=== PATIENT | male | born 1935 | race Caucasian/White ===

== ENCOUNTER 2017-04-17 10:07 | Emergency (ER) | payer MEDICARE, BC ==
[~2017-04-17] VITALS: Ht 167.6 cm; Wt 114.5 kg
[~2017-04-17 10:07] MED LIST: ASPIRIN E.C. 8181 MG PO; ATACAND 16M16 MG/TAB PO; HCTZ 25MG TAB25 MG PO; HUMALOG100 U/ML SC; LANOXIN 0.25M0.25 MG PO; LEVEMIR100 U/ML SC; LIPITOR 10MG10 MG PO; NORVASC 10MG10 MG PO; PLAVIX 75MG TAB75 MG PO; SYNTHROID0.075 MG/T PO; SYNTHROID0.1 MG/TAB PO; TOPROL XL 25MG25 MG PO; TRICOR145 MG PO; ZESTRIL2.5 MG PO
[2017-04-17 10:17] VITALS: TEMP 98
[2017-04-17] MEDS ORDERED: HYDRODIURIL50 MG PO (10:41)
[2017-04-17 11:09] LABS: BASO % 0.3 % (0.0-2.0); EOS # 0.1 (0.0-0.7); EOS % 1.6 % (0-4.0); GRAN # 6.8 (1.4-6.5); GRAN % 77.4 % (42.2-75.2); HEMATOCRIT 44.2 % (42.0-52.0); HEMOGLOBIN 14.7 g/dl (13.5-18.0); LYMPH # 1.1 (1.2-3.4); LYMPH % 12.3 % (20.0-51.0); MEAN CELL VOLUME 90 fl (80.0-100.0); MEAN CORPUSCULAR HEMOGLOBIN 30 pg (27.0-31.0); MEAN CORPUSCULAR HGB CONC 33 g/dl (33.0-37.0); MEAN PLATELET VOLUME 12.1 fl (7.4-10.4); MONO # 0.7 (0.1-0.6); MONO % 7.9 % (1.7-9.3); PLATELET COUNT 181 K/mm3 (130-400); RED BLOOD COUNT 4.89 M/mm3 (4.20-5.60); REDCELL DISTRIBUTION WIDTH-CV 13.6 % (11.5-14.5); WHITE BLOOD COUNT 8.7 K/mm3 (4.8-10.8)
[2017-04-17 11:21] LABS: C-REACTIVE PROTEIN 0.7 mg/dL (0.0-0.9); CALCIUM 9.1 mg/dL (8.4-10.2); CREATININE, serum 1.99 mg/dL (0.66-1.25); POTASSIUM 3.6 mmol/L (3.4-5.0)
[2017-04-17 11:28] LABS: INR 1.1 (0.8-3.0); PROTHROMBIN TIME 12.6 SECONDS (9.7-12.8)
[2017-04-17 11:31] LABS: PARTIAL THROMBOPLASTIN TIME 34.6 SECONDS (26.0-37.0)
[2017-04-17] MEDS ORDERED: NORCO 325 MG-51 TAB PO (13:11)
[2017-04-17] MEDS ORDERED: BACTRIM DS 8001 TAB PO (13:11)
[2017-04-17] MEDS ORDERED: AMOXICILLIN 8751 TAB PO (13:11)
[2017-04-17 13:21] VITALS: BP 122/45; PULSE 87
== END 2017-04-17 13:22 | disposition home or self-care (01) ==
LOC: COL.ER 10:07
PROVIDERS: Emergency Medicine
DX: L03.116 Cellulitis of left lower limb (principal); L03.115 Cellulitis of right lower limb; Z86.718 Personal history of other venous thrombosis and embolism; Z79.4 Long term (current) use of insulin; Z86.711 Personal history of pulmonary embolism; I10 Essential (primary) hypertension; I25.10 Atherosclerotic heart disease of native coronary artery without angina pectoris; Z95.5 Presence of coronary angioplasty implant and graft; E66.9 Obesity, unspecified; Z68.41 Body mass index [BMI] 40.0-44.9, adult

== ENCOUNTER 2018-04-20 07:45 | Day surgery (SDC) | payer MEDICARE, BC ==
[2018-04-20] VITALS (390 sets, daily range): BP systolic 134–188; BP diastolic 56–92; PULSE 53–79; TEMP 97.1–98.1; O2SAT 89–99
[~2018-04-20] VITALS: Ht 167.6 cm; Wt 113.2 kg
[~2018-04-20 07:45] MED LIST changes: +AMOXICILLIN 8751 TAB PO; +BACTRIM DS 8001 TAB PO; -HUMALOG100 U/ML SC; +HUMALOG100 U/ML SQ; +HYDRODIURIL50 MG PO; -LEVEMIR100 U/ML SC; +LEVEMIR100 U/ML SQ; +NORCO 325 MG-51 TAB PO
[2018-04-20 08:26] LABS: HEMATOCRIT 42.9 % (42.0-52.0); HEMOGLOBIN 14.1 g/dl (13.5-18.0); MEAN CELL VOLUME 89 fl (80.0-100.0); MEAN CORPUSCULAR HEMOGLOBIN 29 pg (27.0-31.0); MEAN CORPUSCULAR HGB CONC 33 g/dl (33.0-37.0); MEAN PLATELET VOLUME 11.6 fl (7.4-10.4); PLATELET COUNT 183 K/mm3 (130-400); RED BLOOD COUNT 4.84 M/mm3 (4.20-5.60); REDCELL DISTRIBUTION WIDTH-CV 14.2 % (11.5-14.5)
[2018-04-20 08:32] LABS: PROTHROMBIN TIME 11.9 SECONDS (9.7-12.8)
[2018-04-20 08:36] LABS: CALCIUM 9.3 mg/dL (8.4-10.2); CREATININE, serum 1.71 mg/dL (0.66-1.25); POTASSIUM 3.9 mmol/L (3.4-5.0)
[2018-04-21] VITALS (330 sets, daily range): BP systolic 135–146; BP diastolic 60–82; PULSE 62–67; TEMP 97.8–98; O2SAT 90–100
[2018-04-21 06:01] LABS: BASO % 0.2 % (0.0-2.0); EOS # 0.1 (0.0-0.7); EOS % 1.3 % (0-4.0); GRAN # 8.8 (1.4-6.5); GRAN % 82.5 % (42.2-75.2); HEMOGLOBIN 13.8 g/dl (13.5-18.0); MEAN CELL VOLUME 90 fl (80.0-100.0); MEAN CORPUSCULAR HEMOGLOBIN 29 pg (27.0-31.0); MEAN CORPUSCULAR HGB CONC 32 g/dl (33.0-37.0); MONO # 0.7 (0.1-0.6); MONO % 6.2 % (1.7-9.3); PLATELET COUNT 185 K/mm3 (130-400); RED BLOOD COUNT 4.76 M/mm3 (4.20-5.60); REDCELL DISTRIBUTION WIDTH-CV 14.4 % (11.5-14.5)
[2018-04-21 06:14] LABS: CALCIUM 9.1 mg/dL (8.4-10.2); CREATININE, serum 1.61 mg/dL (0.66-1.25); POTASSIUM 3.8 mmol/L (3.4-5.0)
[2018-04-21] MEDS ORDERED: PLAVIX 75MG TAB75 MG PO (11:36)
[2018-04-22] MEDS ORDERED: TOPROL XL 25MG25 MG PO (16:01)
[2018-04-22] MEDS ORDERED: LIPITOR 10MG10 MG PO (16:02)
== END 2018-04-21 15:40 | disposition home or self-care (01) ==
LOC: COL.CAR 07:45 → ICU 11:46 → COL.CAR 04-21 15:40
PROVIDERS: Internal Medicine Cardiovascular Disease; Nurse Practitioner
DX: I25.10 Atherosclerotic heart disease of native coronary artery without angina pectoris (principal); I10 Essential (primary) hypertension; I87.8 Other specified disorders of veins; E11.9 Type 2 diabetes mellitus without complications; Z79.4 Long term (current) use of insulin; E03.9 Hypothyroidism, unspecified; E87.5 Hyperkalemia; Z87.891 Personal history of nicotine dependence; Z79.899 Other long term (current) drug therapy; Z79.82 Long term (current) use of aspirin; Z83.3 Family history of diabetes mellitus; Z95.5 Presence of coronary angioplasty implant and graft
CPT/HCPCS: OP; C1769; C1874; C1887; C1894; C9600; J1644; J1815; J2250; J3010; J7030; Q9967

== ENCOUNTER → 2018-04-28 | Outpatient (CLI) | payer MEDICARE, BC ==
[~2018-04-28] MED LIST changes: +ASPI325T6 PO
== END ==
LOC: COL.PUL 10:35
DX: I25.10 Atherosclerotic heart disease of native coronary artery without angina pectoris (principal)

== ENCOUNTER → 2018-05-05 | Outpatient (CLI) | payer MEDICARE, BC | LOC: COL.PUL 10:42 | DX: I25.10 Atherosclerotic heart disease of native coronary artery without angina pectoris (principal) ==

== ENCOUNTER → 2018-05-11 | Outpatient (CLI) | payer MEDICARE, BC | LOC: COL.PUL 09:00 | DX: I25.10 Atherosclerotic heart disease of native coronary artery without angina pectoris (principal); R06.02 Shortness of breath ==

== ENCOUNTER → 2018-05-15 | Outpatient (CLI) | payer MEDICARE, BC | LOC: COL.PUL 12:57 | DX: R06.02 Shortness of breath (principal); R07.9 Chest pain, unspecified; I25.10 Atherosclerotic heart disease of native coronary artery without angina pectoris ==

== ENCOUNTER 2019-07-30 11:29 | Day surgery (SDC) | payer MEDICARE, BC ==
[2019-07-30] VITALS (7 sets, daily range): BP systolic 129–148; BP diastolic 68–84; PULSE 68–79; TEMP 98.2
[~2019-07-30] VITALS: Ht 170.3 cm; Wt 91.0 kg
[~2019-07-30 11:29] MED LIST changes: +ASPIRIN 32325 MG/TAB PO; +ELIQUIS 2.5 PO; +ELIQUIS 5MG PO; +HUMALOG PEN100 U/ML SQ; +LASIX 20MG TABL20 MG PO; +LASIX 40MG TABL40 MG PO; +LOPRESSOR 225 MG/TAB PO; +PACERONE400 MG PO; +ZAROXOLYN 2.52.5 MG PO
[2019-07-30 12:30] LABS: INR 1.4 (0.8-3.0); PROTHROMBIN TIME 16.8 SECONDS (9.7-12.8)
[2019-07-30] MEDS ORDERED: NORVASC 10MG10 MG PO (12:58)
[2019-07-30] MEDS ORDERED: PACERONE400 MG PO (12:58)
[2019-07-30] MEDS ORDERED: ELIQUIS 5MG PO (12:59)
[2019-07-30] MEDS ORDERED: ASPIRIN E.C. 8181 MG PO (13:00)
[2019-07-30] MEDS ORDERED: ATACAND32 MG PO (13:02)
[2019-07-30] MEDS ORDERED: LASIX 40MG TABL40 MG PO (13:03)
[2019-07-30] MEDS ORDERED: LEVEMIR FLEX100 U/ML SQ (13:05)
[2019-07-30] MEDS ORDERED: ADMELOG SO100 UNIT/1 SQ (13:07)
[2019-07-30 13:08] LABS: POTASSIUM 4.1 mmol/L (3.4-5.0)
[2019-07-30] MEDS ORDERED: TOPROL XL 50MG50 MG PO ×2 (13:09→14:46)
[2019-07-30 13:43] LABS: THYROID STIMULATING HORMONE 1.12 uIU/mL (0.465-4.680)
--- NOTE | 2019-07-30 14:45 | NUR ---
Report from Flex MACARIO, CV unsuccessful. Pt resting well in bed, family at bedside.
--- NOTE | 2019-07-30 15:45 | NUR ---
Pt has ambulated, voided and jose PO intake s n/v. PIV removed with catheter intact.
--- NOTE | 2019-07-30 16:00 | NUR ---
Pt discharged per w/c by nurse with family.
== END 2019-07-30 16:38 | disposition home or self-care (01) ==
LOC: COL.CAR 11:29
PROVIDERS: Internal Medicine Cardiovascular Disease
DX: I48.19 Other persistent atrial fibrillation (principal); I25.10 Atherosclerotic heart disease of native coronary artery without angina pectoris; I13.10 Hypertensive heart and chronic kidney disease without heart failure, with stage 1 through stage 4 chronic kidney disease, or unspecified chronic kidney disease; N18.9 Chronic kidney disease, unspecified; E11.9 Type 2 diabetes mellitus without complications; Z79.4 Long term (current) use of insulin; Z83.3 Family history of diabetes mellitus; Z82.49 Family history of ischemic heart disease and other diseases of the circulatory system; Z79.899 Other long term (current) drug therapy; Z79.01 Long term (current) use of anticoagulants; Z95.5 Presence of coronary angioplasty implant and graft; Z86.73 Personal history of transient ischemic attack (TIA), and cerebral infarction without residual deficits; E78.5 Hyperlipidemia, unspecified; E03.9 Hypothyroidism, unspecified; I27.20 Pulmonary hypertension, unspecified; I34.0 Nonrheumatic mitral (valve) insufficiency; Z87.891 Personal history of nicotine dependence
CPT/HCPCS: J2704; J7030

== ENCOUNTER → 2019-12-07 | Outpatient (CLI) | payer MEDICARE, BC ==
[~2019-12-07] MED LIST changes: +ADMELOG SO100 UNIT/1 SQ; +ATACAND32 MG PO; +LEVEMIR FLEX100 U/ML SQ; +TOPROL XL 50MG50 MG PO
== END ==
LOC: ZCOL.LAB 12:36
DX: L97.519 Non-pressure chronic ulcer of other part of right foot with unspecified severity (principal)

== ENCOUNTER → 2020-07-06 | Outpatient (CLI) | payer MEDICARE, BC | LOC: ZCOL.LAB 16:28 | DX: L97.519 Non-pressure chronic ulcer of other part of right foot with unspecified severity (principal) ==

== ENCOUNTER → 2020-09-04 | Outpatient (CLI) | payer MEDICARE, BC | LOC: ZCOL.LAB 13:40 | DX: L97.519 Non-pressure chronic ulcer of other part of right foot with unspecified severity (principal) ==

== ENCOUNTER 2020-09-12 12:13 | Inpatient (IN) | payer MEDICARE, BC ==
[~2020-09-12] VITALS: Ht 172.7 cm; Wt 97.9 kg
[~2020-09-12 12:13] MED LIST changes: -DOXYCYCLINE 10100 MG PO; -FLOMAX 0.40.4 MG/CAP PO; -LASIX 80MG TABL80 MG PO; -LEVOXYL0.088 MG PO; -LIPITOR 80MG80 MG PO; -LOPRESSOR 550 MG/TAB PO; -NORVASC 5MG5 MG/TAB PO; -OXYGEN NASAL.CANN
[2020-09-12 12:59] LABS: BASO % 0.5 % (0.0-2.0); EOS # 0.1 (0.0-0.7); EOS % 0.6 % (0-4.0); GRAN # 7.4 (1.4-6.5); GRAN % 84.9 % (42.2-75.2); HEMATOCRIT 38.9 % (42.0-52.0); HEMOGLOBIN 12.5 g/dl (13.5-18.0); LYMPH # 0.7 (1.2-3.4); LYMPH % 7.9 % (20.0-51.0); MEAN CELL VOLUME 94 fl (80.0-100.0); MEAN CORPUSCULAR HEMOGLOBIN 30 pg (27.0-31.0); MEAN CORPUSCULAR HGB CONC 32 g/dl (33.0-37.0); MONO # 0.5 (0.1-0.6); MONO % 5.6 % (1.7-9.3); PLATELET COUNT 172 K/mm3 (130-400); RED BLOOD COUNT 4.15 M/mm3 (4.20-5.60); REDCELL DISTRIBUTION WIDTH-CV 14.8 % (11.5-14.5)
[2020-09-12 13:10] LABS: ALANINE AMINOTRANSFERASE 12 U/L (4-49); ALKALINE PHOSPHATASE 59 U/L (50-136); ANION GAP 11 mmol/L (7-16); AST,SGOT 26 U/L (15-37); BILIRUBIN,TOTAL 1.1 mg/dL (0.0-1.0); BLOOD UREA NITROGEN 47 mg/dL (9-20); CALCIUM 9.1 mg/dL (8.4-10.2); CARBON DIOXIDE 29 mmol/L (22-30); CHLORIDE 99 mmol/L (98-107); CREATININE, serum 2.19 (0.66-1.25); GLUCOSE 260 mg/dL (74-106); POTASSIUM 3.6 mmol/L (3.4-5.0); SODIUM 138 mmol/L (137-145); TOTAL PROTEIN 7.4 gm/dL (6.4-8.2)
[2020-09-12 13:26] LABS: TROPONIN-I < 0.012 ng/mL (0.000-0.035)
[2020-09-12 13:29] LABS: PARTIAL THROMBOPLASTIN TIME 38.3 SECONDS (26.0-37.0)
[2020-09-12 13:30] LABS: INR 2.3 (0.8-3.0); PROTHROMBIN TIME 25.8 SECONDS (9.7-12.8)
[2020-09-12] MEDS ORDERED: LEVOXYL0.088 MG PO (14:37)
[2020-09-12] MEDS ORDERED: NORVASC 5MG5 MG/TAB PO (14:37)
[2020-09-12] MEDS ORDERED: TOPROL XL 25MG25 MG PO (14:37)
[2020-09-12] MEDS ORDERED: FLOMAX 0.40.4 MG/CAP PO (14:38)
[2020-09-12] MEDS ORDERED: LASIX 80MG TABL80 MG PO (14:38)
[2020-09-12] MEDS ORDERED: DOXYCYCLINE 10100 MG PO (14:40)
[2020-09-12 15:56] VITALS: BP 137/60; PULSE 79; TEMP 98.5
[2020-09-12 16:00] VITALS: BP 137/60; PULSE 79; TEMP 98.5
--- NOTE | 2020-09-12 19:09 | NUR ---
Report given to AMIRAH Sullivan. Pt has had an uneventful day since his arrival. Plan is to hold Eliquis and provide heart cath, and possible Thora with Dr. Ruth. No further concerns.
[2020-09-12 20:29] VITALS: BP 125/60; PULSE 77; TEMP 97.3
--- NOTE | 2020-09-12 21:56 | NUR ---
Pt assessment complete. Pt sitting up in bed upon entry, he is A/O x4. His breathing is currently even and unlabored on 2L O2 via NC. Pt does become very dyspneic with exertion and laying down. No pain reported. Pt denies N/V. POC to be NPO after midnight discussed with patient, verbalizes understanding. Pt agreeable to try SCD's at this time. POC discussed with patient who verbalizes understanding. No needs at this time. Call light within reach.
[2020-09-13 00:05] VITALS: BP 121/62; PULSE 79; TEMP 98.1
[2020-09-13 04:17] VITALS: BP 116/54; PULSE 76; TEMP 98
--- NOTE | 2020-09-13 06:23 | NUR ---
Pt slept well through the night. Pt was made NPO at midnight, per TORY Royal in preparation for thoracentesis or heart cath if needed. Pt denied any pain through the night. Some dyspnea on exertion. Had good UOP. On 3L O2 via NC. SCD's in place. Bandage to sore on plantar side of R foot changed. Call light within reach. Will continue to monitor.
[2020-09-13 07:01] LABS: BASO % 0.4 % (0.0-2.0); EOS # 0.1 (0.0-0.7); EOS % 1.2 % (0-4.0); GRAN # 7.5 (1.4-6.5); GRAN % 82.2 % (42.2-75.2); HEMATOCRIT 39.5 % (42.0-52.0); HEMOGLOBIN 12.8 g/dl (13.5-18.0); INR 1.7 (0.8-3.0); LYMPH # 0.9 (1.2-3.4); LYMPH % 9.7 % (20.0-51.0); MEAN CELL VOLUME 94 fl (80.0-100.0); MEAN CORPUSCULAR HEMOGLOBIN 31 pg (27.0-31.0); MEAN CORPUSCULAR HGB CONC 32 g/dl (33.0-37.0); MEAN PLATELET VOLUME 12.7 fl (7.4-10.4); MONO # 0.6 (0.1-0.6); MONO % 6.3 % (1.7-9.3); PLATELET COUNT 172 K/mm3 (130-400); PROTHROMBIN TIME 18.7 SECONDS (9.7-12.8); REDCELL DISTRIBUTION WIDTH-CV 14.8 % (11.5-14.5)
[2020-09-13 07:08] LABS: CALCIUM 9.1 mg/dL (8.4-10.2); CREATININE, serum 2.07 (0.66-1.25); MAGNESIUM 1.9 mg/dL (1.6-2.3); POTASSIUM 3.4 mmol/L (3.4-5.0)
[2020-09-13 09:20] VITALS: BP 121/55; PULSE 81; TEMP 98.1
[2020-09-13] MEDS ORDERED: LOPRESSOR 550 MG/TAB PO (10:10)
--- NOTE | 2020-09-13 10:56 | NUR ---
Photographic Press Screwmaker met with patient and patient's daughter, Yara (ph#[phone]) to discuss discharge planning. Patient lives alone in [place] and sees Dr. Woodward for primary care. Patient obtains most medications by mail from [employer] and also utilizes [facility] as needed. Patient has home oxygen set up through [employer] and uses a cane for ambulation. Patient also has a walker at home but does not use it. Patient reports independence with ADLS and states he does his own cooking at home. Patient states if he is not feeling well, his daughters help him around the home. Patient's daughter Yara lives in and his other daughter, Nivia (ph#[phone]) lives in [place], [place]. Patient has a third child, Tello that lives in [place]. Patient reports he has Advance Directives completed at [facility] and that they designate his daughter, Yara as DPOA-HC. Patient advised he plans to return home upon discharge. SW will continue to follow as needed.
--- NOTE | 2020-09-13 11:00 | NUR ---
Patient is doing well this morning. He stated the lasix is helping him breath better. His family is at bedside. Explained they are going to check for fluid in his lung before doing the thoracentesis. Denies nausea and pain at this time. He has his O2 on at 3L/NC. Patient stated he has been having a hard time getting around, his legs feel heavy. Explained that maybe he will feel better after getting more fluids off. No other changes at this time. Call light within reach.
--- NOTE | 2020-09-13 11:06 | NUR ---
First visit from the resident assistant. No needs right now.
[2020-09-13 12:06] VITALS: BP 109/58; PULSE 85; TEMP 98.2
[2020-09-13 14:33] LABS: PLEURAL FLUID RBC 3000 /mm3 (0-0); PLEURAL FLUID WBC 806 /mm3
[2020-09-13 14:44] LABS: GLUCOSE,PLEURAL FLUID 167 mg/dL; PLEURAL FLUID APPEARANCE CLEAR; PLEURAL FLUID COLOR YELLOW; TOTAL PROTEIN,PLEURAL FLUID 4.3 gm/dL
[2020-09-13 15:20] VITALS: BP 138/72; PULSE 89; TEMP 98.1
--- NOTE | 2020-09-13 18:00 | NUR ---
Patient has been doing well since getting back from his procedure. He is aware he will be having a heart cath on friday. He stated his breathing is better since getting the fluid off. His IV infiltrated and it took 4 sticks to get a 22g in his right hand. His lasix has been switched to oral. No other changes at this time. Call light within reach.
[2020-09-13 19:09] VITALS: BP 143/58; PULSE 105; TEMP 98
[2020-09-14 00:51] VITALS: BP 127/57; PULSE 89; TEMP 97.7
[2020-09-14 04:08] VITALS: BP 147/59; PULSE 79; TEMP 97.4
[2020-09-14 07:56] VITALS: BP 130/59; PULSE 106; TEMP 98.1
[2020-09-14 08:39] LABS: HEMATOCRIT 41.5 % (42.0-52.0); HEMOGLOBIN 13.5 g/dl (13.5-18.0); MEAN CELL VOLUME 95 fl (80.0-100.0); MEAN CORPUSCULAR HEMOGLOBIN 31 pg (27.0-31.0); MEAN CORPUSCULAR HGB CONC 33 g/dl (33.0-37.0); MEAN PLATELET VOLUME 12.3 fl (7.4-10.4); PLATELET COUNT 157 K/mm3 (130-400); RED BLOOD COUNT 4.38 M/mm3 (4.20-5.60)
[2020-09-14 08:53] LABS: CREATININE, serum 2.33 (0.66-1.25); POTASSIUM 3.5 mmol/L (3.4-5.0)
--- NOTE | 2020-09-14 10:00 | NUR ---
Assessment completed, alert/oriented, vital signs stable, patient reports feeling better from having Thoracentesis yesterday, lungs still diminished bilaterally, orders for chets CT today, heart irregular/ A.fib on tele, DM foot ulcer to right plantar aspect of foot/ dressing changed with Aquacell Ag and tegaderm, patient reports he has wound care with home health, nephrology consulted/ I have notified them, patient denies other needs at this time
--- NOTE | 2020-09-14 11:07 | NUR ---
Hair Blender attended clinical rounds with the team. Patient to have heart cath tomorrow and SW will continue to follow.
[2020-09-14 11:48] VITALS: BP 149/54; PULSE 67; TEMP 98.3
--- NOTE | 2020-09-14 12:40 | NUR ---
patient is going down for CT chest at this time
[2020-09-14 16:53] VITALS: BP 101/65; PULSE 77; TEMP 98.1
--- NOTE | 2020-09-14 21:10 | NUR ---
Pt assessment completed and documented. Pt resting in bed sleeping when entering room. Pt alert and oriented x4. Denies pain. INT to right hand CDI. Pt verbalized understanding that he is to be NPO at midnight for heart cath 09/15. Tele on. Pt denies any other needs/concerns. Call light within reach. Will continue to monitor
[2020-09-14 21:44] VITALS: BP 108/58; PULSE 58; TEMP 97.7
[2020-09-15] VITALS (15 sets, daily range): BP systolic 95–121; BP diastolic 48–92; PULSE 63–118; TEMP 97.4–98.6
[2020-09-15 00:10] LABS: COLLECTION METHOD CLEAN CATCH
[2020-09-15 00:20] LABS: MUCOUS Present /lpf; PH 5 (5-8); SQUAMOUS EPITHELIAL 0-2 /hpf; URINE APPEARANCE Clear; URINE BACTERIA None Seen /hpf; URINE BILIRUBIN Negative (NEGATIVE); URINE BLOOD Negative (NEGATIVE); URINE COLOR Yellow; URINE GLUCOSE Negative (NEGATIVE); URINE KETONE Negative (NEGATIVE); URINE LEUKOCYTE ESTERASE Negative (NEGATIVE); URINE NITRATE Negative (NEGATIVE); URINE PROTEIN(semi-quant) 1+ (NEGATIVE); URINE RBC 0-2 /hpf; URINE UROBILINOGEN Negative (NEGATIVE); URINE WBC 0-2 /hpf
[2020-09-15 00:27] LABS: URINE PROTEIN:CREAT RATIO 0.58 (0.00-0.14)
--- NOTE | 2020-09-15 05:10 | NUR ---
Pt reports he was not able to get much sleep overnight. No complaints of pain. Currently resting in bed. NPO since midnight. Tele on. Denies any needs/concerns. Call light within reach
[2020-09-15 07:01] LABS: HEMATOCRIT 39.9 % (42.0-52.0); HEMOGLOBIN 12.8 g/dl (13.5-18.0); MEAN CELL VOLUME 95 fl (80.0-100.0); MEAN CORPUSCULAR HEMOGLOBIN 31 pg (27.0-31.0); MEAN CORPUSCULAR HGB CONC 32 g/dl (33.0-37.0); PLATELET COUNT 156 K/mm3 (130-400); REDCELL DISTRIBUTION WIDTH-CV 15.1 % (11.5-14.5)
[2020-09-15 07:02] LABS: CALCIUM 8.9 mg/dL (8.4-10.2); CREATININE, serum 2.14 (0.66-1.25); POTASSIUM 3.2 mmol/L (3.4-5.0)
--- NOTE | 2020-09-15 08:00 | NUR ---
PT PLEASANT, AOX4, PT DENIES PAIN AT THIS TIME, PT NPO FOR PROCEDURE, HAD SIP OF WATER WITH PILLS, VITALS REVIEWED, MEDICATIONS GIVEN. CONSENT SIGNED ON CHART. NO OTHER NEEDS.
--- NOTE | 2020-09-15 12:30 | NUR ---
PT TAKEN DOWN FOR HEART CATH.
--- NOTE | 2020-09-15 14:05 | NUR ---
PT STATES HE FELT DIZZY, EXPLAINED HIGH HR COULD BE CAUSE. PT HAVING BORDERLINE LOW BP'S, EXPLAINED AMOUNT OF TIME HE HAS TO LAY DOWN, NO OTHER NEEDS.
--- NOTE | 2020-09-15 15:09 | NUR ---
PT REPORTING NAUSEA, DENIES NEED FOR MEDICAL INTERVENTION, PT STILL FEELS DIZZY, BS NORMAL, PT ATTEMPTING TO DRINK POTASSIUM IN APPLE JUICE.
--- NOTE | 2020-09-15 16:24 | NUR ---
PT STOOD WITH ASSISTANCE TO USE URINAL, 15OML OUTPUT. RECIEVED CALL FROM TELEMETRY ABOUT HR IN 150'S. PT SETTLED BACK INTO BED, HR STILL OVER 100. TORY HERRERA NOTIFIED. TR BAND RELEASED 5ML, CURRENTLY AT 11ML. NO OOZING OR DRAINAGE FROM SITE, R FEMORAL SITE SOFT TO PALPATION, NO BLEEDING THROUGH DRESSING.
--- NOTE | 2020-09-15 16:55 | NUR ---
some oozing at radial site, band inflated to 15mls of air. toprol given per TORY Shin and Dr. Aguirre.
--- NOTE | 2020-09-15 17:34 | NUR ---
pt pleasant overall, was initially upset i had to help him up after heartcath to use the urinal. pt aox4, low pressures, inc hr, hosp and georgina aware. heart cath with no intervention. r radial attempted to let out air but oozing so inflated again. r femoral site soft to palpation with no bleeding at dressing site. toprol given. pt initially dizzy after procedure but denies at this time. no other needs.
[2020-09-16] VITALS (7 sets, daily range): BP systolic 100–125; BP diastolic 46–80; PULSE 75–96; TEMP 97.4–98.5
--- NOTE | 2020-09-16 03:27 | NUR ---
Patient was having difficulty sleeping. Called provider, and was given an order for melatonin. Patient is currenlty resting comfortably. Call light within reach.
[2020-09-16 05:55] LABS: BASO # 0.1 (0.0-0.2); BASO % 0.7 % (0.0-2.0); EOS # 0.2 (0.0-0.7); EOS % 2.2 % (0-4.0); GRAN # 5.5 (1.4-6.5); GRAN % 75.6 % (42.2-75.2); HEMATOCRIT 37.9 % (42.0-52.0); LYMPH # 0.9 (1.2-3.4); LYMPH % 12.8 % (20.0-51.0); MEAN CELL VOLUME 94 fl (80.0-100.0); MEAN CORPUSCULAR HEMOGLOBIN 30 pg (27.0-31.0); MEAN CORPUSCULAR HGB CONC 32 g/dl (33.0-37.0); MEAN PLATELET VOLUME 12.5 fl (7.4-10.4); MONO # 0.6 (0.1-0.6); MONO % 8.4 % (1.7-9.3); PLATELET COUNT 137 K/mm3 (130-400); RED BLOOD COUNT 4.03 M/mm3 (4.20-5.60); REDCELL DISTRIBUTION WIDTH-CV 15.1 % (11.5-14.5)
[2020-09-16 06:06] LABS: CALCIUM 8.6 mg/dL (8.4-10.2); CREATININE, serum 1.97 (0.66-1.25); MAGNESIUM 1.9 mg/dL (1.6-2.3); POTASSIUM 3.7 mmol/L (3.4-5.0)
--- NOTE | 2020-09-16 06:50 | NUR ---
bedside shift report received from Xiomara student nurse and Tran, RN
--- NOTE | 2020-09-16 09:00 | NUR ---
resting in bed after having had breakfast and tolerated it well, denies pain but c/o soreness in his chest, informed him he needs to let this nurse know if soreness in his chest changes or becomes worse, he states it just happened he got up and went to bathroom, encouraged to rest
--- NOTE | 2020-09-16 09:50 | NUR ---
assisted up to bathroom with use of cane, was able to have a bowel movement and am hygiene completed, does not c/o soreness at this time
--- NOTE | 2020-09-16 11:30 | NUR ---
in bed and appears to be sleeping, eyes closed, resp quiet and easy
--- NOTE | 2020-09-16 13:10 | NUR ---
bedside report given to James Chaidez
--- NOTE | 2020-09-16 20:27 | NUR ---
PT A/O X4, IN BED WITH HOB ELEVATED, DENIES PAIN OR DISCOMFORT, OR ANY NEEDS AT THIS TIME. CALL LIGHT WITHIN REACH.
[2020-09-17 04:20] VITALS: BP 120/54; PULSE 81; TEMP 97.8
[2020-09-17 06:37] LABS: BASO % 0.4 % (0.0-2.0); EOS # 0.2 (0.0-0.7); EOS % 1.9 % (0-4.0); GRAN # 6.6 (1.4-6.5); HEMATOCRIT 38.9 % (42.0-52.0); HEMOGLOBIN 12.2 g/dl (13.5-18.0); LYMPH % 11.4 % (20.0-51.0); MEAN CELL VOLUME 97 fl (80.0-100.0); MEAN CORPUSCULAR HEMOGLOBIN 30 pg (27.0-31.0); MEAN CORPUSCULAR HGB CONC 31 g/dl (33.0-37.0); MEAN PLATELET VOLUME 12.4 fl (7.4-10.4); MONO # 0.6 (0.1-0.6); MONO % 6.9 % (1.7-9.3); PLATELET COUNT 127 K/mm3 (130-400); RED BLOOD COUNT 4.02 M/mm3 (4.20-5.60); REDCELL DISTRIBUTION WIDTH-CV 15.4 % (11.5-14.5)
--- NOTE | 2020-09-17 06:55 | NUR ---
PT SLEPT WELL WITH NO ISSUES OR CONCERNS NOTED. PT READY TO GO HOME, ANXIOUS TO SEE DOCTOR, SO HE CAN LEAVE. CALL LIGHT WITHIN REACH.
[2020-09-17 06:58] LABS: CALCIUM 9.1 mg/dL (8.4-10.2); CREATININE, serum 2.05 (0.66-1.25); POTASSIUM 4.2 mmol/L (3.4-5.0)
--- NOTE | 2020-09-17 07:01 | NUR ---
bedside shift report received from AMIRAH Yang
[2020-09-17 07:30] VITALS: BP 119/58; PULSE 83; TEMP 98.1
[2020-09-17] MEDS ORDERED: LIPITOR 80MG80 MG PO (07:50)
[2020-09-17] MEDS ORDERED: TOPROL XL 25MG25 MG PO (07:50)
[2020-09-17] MEDS ORDERED: ASPIRIN E.C. 8181 MG PO (07:50)
--- NOTE | 2020-09-17 08:13 | NUR ---
PT AT REST IN BED. ON 2 LPM SPO2 97% AT REST ON RA SPO2 87% O2 BACK ON AT 2 LPM NC PT. USES O2 @ HOME @ 2 LPM NC
--- NOTE | 2020-09-17 08:40 | NUR ---
remains sitting up on side of bed after having had breakfas,t cardiopulmonary check room air O2 and it was 87% so O2 back on at 2L/NC, full assessment completed, see interventions for further info, denies needs at this time, will lay back in bed now
--- NOTE | 2020-09-17 09:44 | NUR ---
resting in bed with eyes closed
[2020-09-17] MEDS ORDERED: LASIX 20MG TABL20 MG PO ×2 (10:09→10:18)
[2020-09-17] MEDS ORDERED: OXYGEN NASAL.CANN (10:17)
--- NOTE | 2020-09-17 11:25 | NUR ---
discharged per WC, assisted into car with his daughter, also reviewed discharge orders and medication changes with his daughter and she also verbalizes understanding
== END 2020-09-17 11:25 | disposition home or self-care (01) | DRG 286 ==
LOC: COL.ER 12:13 → MEDICAL 13:44
PROVIDERS: Family Medicine; Internal Medicine Nephrology; Physician Assistant; Student in an Organized Health Care Education/Training Program; ADMIT Hospitalist
PROC: 0W993ZZ Drainage of Right Pleural Cavity, Percutaneous Approach (ICD-10-PCS; 2020-09-13)
PROC: 4A023N6 Measurement of Cardiac Sampling and Pressure, Right Heart, Percutaneous Approach (ICD-10-PCS; principal; 2020-09-15)
PROC: B2111ZZ Fluoroscopy of Multiple Coronary Arteries using Low Osmolar Contrast (ICD-10-PCS; 2020-09-15)
DX: I13.0 Hypertensive heart and chronic kidney disease with heart failure and stage 1 through stage 4 chronic kidney disease, or unspecified chronic kidney disease (principal); I50.33 Acute on chronic diastolic (congestive) heart failure; J96.01 Acute respiratory failure with hypoxia; J98.11 Atelectasis; I25.10 Atherosclerotic heart disease of native coronary artery without angina pectoris; I48.91 Unspecified atrial fibrillation; N18.30 Chronic kidney disease, stage 3 unspecified; E03.9 Hypothyroidism, unspecified; E78.5 Hyperlipidemia, unspecified; J44.9 Chronic obstructive pulmonary disease, unspecified; N40.0 Benign prostatic hyperplasia without lower urinary tract symptoms; Z66 Do not resuscitate; I16.0 Hypertensive urgency; D64.9 Anemia, unspecified; E11.22 Type 2 diabetes mellitus with diabetic chronic kidney disease; S91.301A Unspecified open wound, right foot, initial encounter; I27.20 Pulmonary hypertension, unspecified; I42.9 Cardiomyopathy, unspecified; E87.6 Hypokalemia; D63.1 Anemia in chronic kidney disease; E66.9 Obesity, unspecified; Z86.73 Personal history of transient ischemic attack (TIA), and cerebral infarction without residual deficits; Z95.5 Presence of coronary angioplasty implant and graft; Z79.01 Long term (current) use of anticoagulants; Z87.891 Personal history of nicotine dependence; Z79.4 Long term (current) use of insulin; Z68.32 Body mass index [BMI] 32.0-32.9, adult
CPT/HCPCS: 99223-AI; 99232-AI; 99233-AI; 99239; J1644; J1650; J1815; J1940; J3010; Q9967

== ENCOUNTER → 2020-09-12 | Outpatient (CLI) | payer MEDICARE, BC ==
[~2020-09-12] MED LIST changes: +DOXYCYCLINE 10100 MG PO; +FLOMAX 0.40.4 MG/CAP PO; +LASIX 80MG TABL80 MG PO; +LEVOXYL0.088 MG PO; +LIPITOR 80MG80 MG PO; +LOPRESSOR 550 MG/TAB PO; +NORVASC 5MG5 MG/TAB PO; +OXYGEN NASAL.CANN
== END ==
LOC: COL.CAR 08:00 → COL.LAB 08:00 → EDSTATUS 09-18 08:00 → COL.CAR 09-18 08:00
DX: Z20.828 Contact with and (suspected) exposure to other viral communicable diseases (principal)

== ENCOUNTER 2022-05-17 08:20 | Day surgery (SDC) | payer MEDICARE, BC ==
[2022-05-17] VITALS (497 sets, daily range): BP systolic 113–135; BP diastolic 54–77; PULSE 70–87; TEMP 97.8–98.4; O2SAT 79–99
[~2022-05-17] VITALS: Ht 172.7 cm; Wt 92.1 kg
[~2022-05-17 08:20] MED LIST changes: +DOXYCYCLINE 10100 MG PO; +FLOMAX 0.40.4 MG/CAP PO; +LASIX 80MG TABL80 MG PO; +LEVOXYL0.088 MG PO; +LIPITOR 80MG80 MG PO; +LOPRESSOR 550 MG/TAB PO; +NORVASC 5MG5 MG/TAB PO; +OXYGEN NASAL.CANN
[2022-05-17 09:36] LABS: HEMOGLOBIN 11.5 g/dl (13.5-18.0); MEAN CELL VOLUME 94 fl (80.0-100.0); MEAN CORPUSCULAR HEMOGLOBIN 31 pg (27-31); MEAN CORPUSCULAR HGB CONC 33 g/dl (33.0-37.0); MEAN PLATELET VOLUME 12.1 fl (7.4-10.4); PLATELET COUNT 131 K/mm3 (130-400); RED BLOOD COUNT 3.75 M/mm3 (4.20-5.60); REDCELL DISTRIBUTION WIDTH-CV 17.4 % (11.5-14.5)
[2022-05-17 09:37] LABS: HEMATOCRIT 35.1 % (42.0-52.0)
[2022-05-17 09:43] LABS: INR 1.3 (0.8-3.0); PROTHROMBIN TIME 15.4 SECONDS (9.7-12.8)
[2022-05-17 09:45] LABS: PARTIAL THROMBOPLASTIN TIME 33.5 SECONDS (26.0-37.0)
[2022-05-17 09:52] LABS: CALCIUM 8.8 mg/dL (8.4-10.2); CREATININE, serum 2.76 mg/dL (0.72-1.25); POTASSIUM 3.4 mmol/L (3.5-4.5)
[2022-05-17] MEDS ORDERED: TOPROL XL 25MG25 MG PO (10:26)
[2022-05-17] MEDS ORDERED: LASIX 40MG TABL40 MG PO (10:28)
[2022-05-17] MEDS ORDERED: TRICOR145 MG PO (10:29)
[2022-05-17] MEDS ORDERED: ASPIRIN E.C. 8181 MG PO (10:33)
[2022-05-17] MEDS ORDERED: NORVASC 5MG5 MG/TAB PO (10:34)
[2022-05-17] MEDS ORDERED: NEURONTIN300 MG/CAP PO (10:37)
[2022-05-17] MEDS ORDERED: HUMALOG100 U/ML SQ (10:40)
--- NOTE | 2022-05-17 12:20 | NUR ---
Received report from shrimp pond laborer that pt would be transferring to ICU room 6 after procedure.
--- NOTE | 2022-05-17 13:40 | NUR ---
Arrived to the unit from the catheterization laboratory technician. Patient alert and oriented and in no distress upon arrival. Denies any chest pain or shortness of breath. Reminded patient of limb restrictions while on flat time and patient states he understands. Right groin site and right radial site assessed. +2 pulses palpated and no hematoma noted to either site. TR band with 12ml of air.
--- NOTE | 2022-05-17 16:02 | NUR ---
RE:REFERRAL TO CARDIAC REHAB - REFERRAL WILL BE SENT TO [facility].
--- NOTE | 2022-05-17 18:35 | NUR ---
Denies any concerns or complaints. Ate 75% of his dinner. Call light left within reach.
[2022-05-18] VITALS (616 sets, daily range): BP systolic 111–154; BP diastolic 51–71; PULSE 79–95; TEMP 98.7–99.1; O2SAT 81–99
[2022-05-18 06:32] LABS: ARTERIAL BLD GAS O2 SATURATION 91.9 % (92-100); ARTERIAL BLOOD GAS BASE EXCESS 4.9 (-2-2); ARTERIAL BLOOD GAS HCO3 28.8 meq/L (22-26); ARTERIAL BLOOD GAS PCO2 39.7 mmHg (35-45); ARTERIAL BLOOD GAS pH 7.48 (7.35-7.45)
[2022-05-18 07:14] LABS: HEMOGLOBIN 11.2 g/dl (13.5-18.0); MEAN CELL VOLUME 94 fl (80.0-100.0); MEAN CORPUSCULAR HEMOGLOBIN 32 pg (27-31); MEAN CORPUSCULAR HGB CONC 34 g/dl (33.0-37.0); MEAN PLATELET VOLUME 12.7 fl (7.4-10.4); PLATELET COUNT 146 K/mm3 (130-400); RED BLOOD COUNT 3.56 M/mm3 (4.20-5.60); REDCELL DISTRIBUTION WIDTH-CV 17.3 % (11.5-14.5)
[2022-05-18 07:15] LABS: HEMATOCRIT 33.3 % (42.0-52.0)
[2022-05-18 07:32] LABS: CALCIUM 8.6 mg/dL (8.4-10.2); CREATININE, serum 2.24 mg/dL (0.72-1.25); POTASSIUM 3.5 mmol/L (3.5-4.5)
[2022-05-18 07:50] LABS: BAND 9 % (0-10); EOSINOPHIL 3 % (0-4); LYMPHOCYTE 6 % (20.0-51.0); METAMYELOCYTE 2 % (0-0); NEUTROPHILS 76 % (42.0-75.2); PLATELET ESTIMATE NORMAL (NORMAL)
--- NOTE | 2022-05-18 09:35 | NUR ---
tin recovery worker met with patient to complete intake and discuss discharge plan. Patient reports that he lives at home in [place] and that at this time his son and daughter in law are living with him. He goes on to say that his daughter from [place] is coming in two weeks to stay with him. Patient states that the children have been rotating taking care of him since his 5 years ago. He is independent with his ADL's and does utilize a cane to assist with mobility. Patient states that he utilizes 3Lof NC oxygen at home but cannot remember where it is supplied through. PCP is and he utilizes [facility] pharmacy for prescriptions with no cost difficulty. Patient states that he does have a DPOA-HC established listing his daughter Yara ([phone]) as his agent.
--- NOTE | 2022-05-18 10:37 | NUR ---
Initial visit; Patient resting, Oxyhydrogen Welder left card offering God's blessings and information regarding the availability of Spiritual Care at our hospital.
--- NOTE | 2022-05-18 11:49 | NUR ---
PT LEFT FOR CT ON ICU BED WITH 2 TECHS.
--- NOTE | 2022-05-18 12:00 | NUR ---
PT RETURNED BACK TO HIS ROOM.
[2022-05-18] MEDS ORDERED: LIPITOR 80MG80 MG PO (15:03)
[2022-05-18] MEDS ORDERED: PLAVIX 75MG TAB75 MG PO (15:13)
--- NOTE | 2022-05-18 16:07 | NUR ---
PT LEFT UNIT VIA WHEELCHAIR WITH FAMILY. VSS.
== END 2022-05-18 16:30 | disposition home or self-care (01) ==
LOC: COL.CAR 08:20 → ICU 13:30 → COL.CAR 05-18 16:30
PROVIDERS: Internal Medicine Cardiovascular Disease; Student in an Organized Health Care Education/Training Program
DX: I25.10 Atherosclerotic heart disease of native coronary artery without angina pectoris (principal); I27.20 Pulmonary hypertension, unspecified; Z87.891 Personal history of nicotine dependence
CPT/HCPCS: OP; C1725; C1769; C1874; C1887; C1894; C9600; J0583; J1644; J1815; J2060; J2250; J2270; J3010; J3480; Q9967

== ENCOUNTER 2023-01-29 09:52 | Emergency (ER) | payer MEDICARE, BC ==
[~2023-01-29] VITALS: Ht 172.7 cm; Wt 81.8 kg
[~2023-01-29 09:52] MED LIST changes: +NEURONTIN300 MG/CAP PO
[2023-01-29 10:23] LABS: BASO % 0.4 % (0.0-2.0); EOS # 0.1 K/mm3 (0.0-0.7); EOS % 1.3 % (0.0-4.0); GRAN # 5.5 K/mm3 (1.4-6.5); GRAN % 78.4 % (42.2-75.2); HEMATOCRIT 39.3 % (42.0-52.0); LYMPH # 0.8 K/mm3 (1.2-3.4); LYMPH % 10.7 % (20.0-51.0); MEAN CELL VOLUME 101 fl (80.0-100.0); MEAN CORPUSCULAR HEMOGLOBIN 33 pg (27-31); MEAN CORPUSCULAR HGB CONC 33 g/dl (33.0-37.0); MEAN PLATELET VOLUME 12.7 fl (7.4-10.4); MONO # 0.6 K/mm3 (0.1-0.6); MONO % 8.6 % (1.7-9.3); PLATELET COUNT 157 K/mm3 (130-400); RED BLOOD COUNT 3.89 M/mm3 (4.20-5.60); REDCELL DISTRIBUTION WIDTH-CV 14.6 % (11.5-14.5)
[2023-01-29 10:34] LABS: ALBUMIN 2.9 gm/dL (3.4-4.8); BILIRUBIN,TOTAL 0.6 mg/dL (0.2-1.2); CALCIUM 8.6 mg/dL (8.4-10.2); CREATININE, serum 2.19 mg/dL (0.72-1.25); POTASSIUM 4.7 mmol/L (3.5-4.5); TOTAL PROTEIN 6.6 gm/dL (6.2-8.1)
[2023-01-29 10:40] LABS: TROPONIN-I 0.02 ng/mL (0.00-0.033)
[2023-01-29] MEDS ORDERED: DOXYCYCLINE HY100 MG PO (10:40)
[2023-01-29] MEDS ORDERED: K-TAB20 PO (10:41)
[2023-01-29 10:46] LABS: INR 1.5 (0.8-3.0)
[2023-01-29] MEDS ORDERED: MAG-OX 400400 MG/TAB PO (11:19)
[2023-01-29] MEDS ORDERED: VITAMIN D 50,1.25 MG PO (11:21)
[2023-01-29] MEDS ORDERED: FOLIC ACID 11 MG/TA1 PO (11:21)
[2023-01-29] MEDS ORDERED: OXYGEN (11:22)
[2023-01-29 16:05] VITALS: BP 151/83; PULSE 87; TEMP 98.1
== END 2023-01-29 16:05 | disposition home or self-care (01) ==
LOC: COL.ER 09:52
PROVIDERS: Family Medicine
DX: J90 Pleural effusion, not elsewhere classified (principal); I48.91 Unspecified atrial fibrillation; Z99.81 Dependence on supplemental oxygen; Z79.01 Long term (current) use of anticoagulants; Z20.822 Contact with and (suspected) exposure to COVID-19

== ENCOUNTER 2023-07-03 08:56 | Inpatient (IN) | payer MEDICARE, BC ==
[2023-07-03] VITALS (8 sets, daily range): BP systolic 115–137; BP diastolic 57–77; PULSE 79–114; TEMP 97.5–98.3
[~2023-07-03] VITALS: Ht 170.2 cm; Wt 80.8 kg
[~2023-07-03 08:56] MED LIST changes: +DOXYCYCLINE HY100 MG PO; +FOLIC ACID 11 MG/TA1 PO; +JARDIANCE10; +K-TAB20 PO; +MAG-OX 400400 MG/TAB PO; +NEURONTIN100 MG/CAP PO; -NEURONTIN300 MG/CAP PO; +NOVOLOG 100U100 U/M1 SQ; +OXYGEN; +SYNTHROID0.175 MG PO; +VITAMIN D 50,1.25 MG PO
[2023-07-03] MEDS ORDERED: LASIX 20MG TABL20 MG PO (09:40)
[2023-07-03 12:10] LABS: BASO % 0.4 % (0.0-2.0); EOS # 0.1 K/mm3 (0.0-0.7); EOS % 0.7 % (0.0-4.0); GRAN % 82.9 % (42.2-75.2); HEMATOCRIT 42.9 % (42.0-52.0); HEMOGLOBIN 13.8 g/dl (13.5-18.0); LYMPH # 0.6 K/mm3 (1.2-3.4); LYMPH % 8.9 % (20.0-51.0); MEAN CELL VOLUME 98 fl (80.0-100.0); MEAN CORPUSCULAR HEMOGLOBIN 31 pg (27-31); MEAN CORPUSCULAR HGB CONC 32 g/dl (33.0-37.0); MEAN PLATELET VOLUME 11.1 fl (7.4-10.4); MONO # 0.5 K/mm3 (0.1-0.6); MONO % 6.8 % (1.7-9.3); PLATELET COUNT 142 K/mm3 (130-400)
[2023-07-03 12:30] LABS: ALBUMIN 3.1 gm/dL (3.4-4.8); ALBUMIN 3.2 gm/dL (3.4-4.8); BILIRUBIN,TOTAL 0.9 mg/dL (0.2-1.2); CALCIUM 8.9 mg/dL (8.4-10.2); CREATININE, serum 2.07 mg/dL (0.72-1.25); PHOSPHOROUS 3.9 mg/dL (2.3-4.7); POTASSIUM 4.4 mmol/L (3.5-4.5); POTASSIUM 4.5 mmol/L (3.5-4.5)
[2023-07-03 19:18] LABS: SQUAMOUS EPITHELIAL 0-2 /hpf (0-10); URINE BACTERIA None Seen /hpf (NONE SEEN); URINE RBC 0-2 /hpf (0-2)
[2023-07-03 19:19] LABS: URINE APPEARANCE Clear (CLEAR/HAZY); URINE BLOOD TRACE-INTACT (NEGATIVE); URINE COLOR Straw (YELLOW); URINE GLUCOSE 2+ (NEGATIVE); URINE KETONE Negative (NEGATIVE); URINE NITRATE Negative (NEGATIVE); URINE PROTEIN(semi-quant) 1+ (NEGATIVE); URINE UROBILINOGEN 0.2 E.U/dL (0.2-1.0)
[2023-07-03 19:22] LABS: COLLECTION METHOD CLEAN CATCH
--- NOTE | 2023-07-03 19:34 | NUR ---
Pt arrived to room 307 at approximately 0910 with dx of fluid overload. A/O x4. Pt SpO2 adequate on RA but O2 3L/NC placed for comfort. Pt very SOA with any type of exertion. Fall risk- fall precautions in place. IV site placed to RFA by NEHAL after failed attempt x1 by this nurse. Bumex infusing at 5ml/hr without complications. Ulcer to planter surface of right foot noted. Pt reports this ulcer is chronic and was seeing wound care but no longer does. Some open blisters noted to bilateral shins.
--- NOTE | 2023-07-03 20:30 | NUR ---
SHIFT ASSESSMENT COMPLETE. VSS. A&O X4. PATIENT RESTING IN BED WATCHING TV. ALL NIGHT MEDS GIVEN PER ORDER. PATIENT HAS NO COMPLAINTS AT THIS TIME. BED AT LOWEST POSITION, BED ALARM ON, AND CALL LIGHT IN REACH.
[2023-07-04] VITALS (11 sets, daily range): BP systolic 119–150; BP diastolic 60–80; PULSE 52–91; TEMP 97.5–98.1
[2023-07-04 06:34] LABS: BASO # 0.1 K/mm3 (0.0-0.2); BASO % 1.1 % (0.0-2.0); EOS # 0.1 K/mm3 (0.0-0.7); EOS % 1.9 % (0.0-4.0); GRAN # 4.1 K/mm3 (1.4-6.5); GRAN % 71.9 % (42.2-75.2); HEMATOCRIT 45.1 % (42.0-52.0); HEMOGLOBIN 14.6 g/dl (13.5-18.0); LYMPH # 0.9 K/mm3 (1.2-3.4); LYMPH % 14.9 % (20.0-51.0); MEAN CELL VOLUME 96 fl (80.0-100.0); MEAN CORPUSCULAR HEMOGLOBIN 31 pg (27-31); MEAN CORPUSCULAR HGB CONC 32 g/dl (33.0-37.0); MONO # 0.6 K/mm3 (0.1-0.6); MONO % 9.8 % (1.7-9.3); PLATELET COUNT 148 K/mm3 (130-400); RED BLOOD COUNT 4.69 M/mm3 (4.20-5.60); REDCELL DISTRIBUTION WIDTH-CV 16.2 % (11.5-14.5)
[2023-07-04 06:56] LABS: ALBUMIN 3.1 gm/dL (3.4-4.8); CALCIUM 9.3 mg/dL (8.4-10.2); CREATININE, serum 2.45 mg/dL (0.72-1.25); PHOSPHOROUS 5.2 mg/dL (2.3-4.7)
--- NOTE | 2023-07-04 08:00 | NUR ---
Patient sitting up in bed, A&Ox3. VSS 3L NC O2. IV CDI, fluids infusing. Reports pain in legs/all over body. Will notify the doctor. Call light within reach. Bed alarm on
--- NOTE | 2023-07-04 15:07 | NUR ---
Financial Services Professional met with Patient at bedside to conduct Care Managment assessment and discuss discharge planning. Patient lives with his daughter/DPOAHC in [place], [place] and is established with Dr. Woodward for PCP. Patient is covered by [facility] [place] for insurance. Patient requests discharge medications be sent to [facility] in [place]. Patient endorses NOC O2 and PRN during the day prior to admission. Patient states that he utilizes a cane, walker, and motorized wheelchair in the home and community. Patient states that he is independent with IADLs prior to admission. Discharge Plan: Home pending medical and PT recommendations.
--- NOTE | 2023-07-04 19:11 | NUR ---
Bedside report received from AMIRAH Chow. Pt is currently resting in bed watching tv. Pt has no complaints. Call light within reach and fall precautions in place.
[2023-07-05] VITALS (13 sets, daily range): BP systolic 110–160; BP diastolic 50–74; PULSE 82–103; TEMP 97.5–98.5
[2023-07-05 07:06] LABS: BASO % 0.6 % (0.0-2.0); EOS # 0.1 K/mm3 (0.0-0.7); EOS % 1.9 % (0.0-4.0); GRAN # 4.5 K/mm3 (1.4-6.5); GRAN % 71.7 % (42.2-75.2); HEMATOCRIT 45.1 % (42.0-52.0); LYMPH # 0.9 K/mm3 (1.2-3.4); LYMPH % 14.6 % (20.0-51.0); MEAN CELL VOLUME 100 fl (80.0-100.0); MEAN CORPUSCULAR HEMOGLOBIN 31 pg (27-31); MEAN CORPUSCULAR HGB CONC 31 g/dl (33.0-37.0); MONO # 0.7 K/mm3 (0.1-0.6); MONO % 10.9 % (1.7-9.3); PLATELET COUNT 160 K/mm3 (130-400); REDCELL DISTRIBUTION WIDTH-CV 15.9 % (11.5-14.5)
[2023-07-05 07:17] LABS: ALBUMIN 3.1 gm/dL (3.4-4.8); CREATININE, serum 2.97 mg/dL (0.72-1.25); PHOSPHOROUS 5.3 mg/dL (2.3-4.7); POTASSIUM 4.1 mmol/L (3.5-4.5)
--- NOTE | 2023-07-05 08:00 | NUR ---
Patient sitting up in bed watching TV. A&Ox4 VSS 3L NC O2. No reported SOB. IV CDI. Au intact. Denies pain and discomfort. Call light within reach
--- NOTE | 2023-07-05 12:00 | NUR ---
Bedside thora by Dr. Ruth. Patient tolerated well. RT side bandaid. Post op VS monitored. Denies pain and discomfort. A&Ox3. IV CDI. Call light within reach
--- NOTE | 2023-07-05 12:05 | NUR ---
Medical Reimbursement Manager rounds: Medical Reimbursement Manager visit attempted; Patient had visitors.
--- NOTE | 2023-07-05 23:02 | NUR ---
Shift assessment performed. Pt is alert and oriented. He is currently on room air and states that he is feeling great since the thoracentesis. He denies pain or discomforts at this time. Pt has some slight drainage of old blood coming from his penis from the kuhn placment. Urine output is light yellow and clear. Pt denies needs at this time. Call light left within reach and fall precautions in place.
[2023-07-06] VITALS (12 sets, daily range): BP systolic 116–141; BP diastolic 58–77; PULSE 62–90; TEMP 97.5–99.1
[2023-07-06 06:45] LABS: BASO % 0.5 % (0.0-2.0); EOS # 0.1 K/mm3 (0.0-0.7); EOS % 2.2 % (0.0-4.0); GRAN # 4.6 K/mm3 (1.4-6.5); GRAN % 72.9 % (42.2-75.2); HEMATOCRIT 44.6 % (42.0-52.0); HEMOGLOBIN 14.2 g/dl (13.5-18.0); LYMPH # 0.8 K/mm3 (1.2-3.4); LYMPH % 13.2 % (20.0-51.0); MEAN CELL VOLUME 100 fl (80.0-100.0); MEAN CORPUSCULAR HEMOGLOBIN 32 pg (27-31); MEAN CORPUSCULAR HGB CONC 32 g/dl (33.0-37.0); MEAN PLATELET VOLUME 12.7 fl (7.4-10.4); MONO # 0.7 K/mm3 (0.1-0.6); MONO % 10.7 % (1.7-9.3); PLATELET COUNT 141 K/mm3 (130-400); RED BLOOD COUNT 4.48 M/mm3 (4.20-5.60)
[2023-07-06 07:00] LABS: ALBUMIN 2.8 gm/dL (3.4-4.8); CALCIUM 8.5 mg/dL (8.4-10.2); CREATININE, serum 2.74 mg/dL (0.72-1.25); PHOSPHOROUS 4.2 mg/dL (2.3-4.7); POTASSIUM 3.8 mmol/L (3.5-4.5)
--- NOTE | 2023-07-06 07:00 | NUR ---
PT RESTING IN BED. PT IS ON 3L NC, PT STATES HE WEARS 2-3L AT HOME. PT IS AXOX3. PT HAS INDWELLING SHELBY DRAINING WELL. PT HAS CALL LIGHT AND INSTRUCTED TO CALL WTIH ALL NEEDS.
--- NOTE | 2023-07-06 20:51 | NUR ---
Patient assessed at this time, see shift assessment, A/Ox4, with INT to right forearm infusing well, on 2LPM via nasal prong, denies SOA at this time, with kuhn to DD, left forearm restriction implemented, 1500 FR implemented as well, denies pain or discomfort at this time, plan of care discussed for the this shift to include meds/pain control/calling for questions/concerns, call light and personal items within reach, will continue to monitor.
[2023-07-07] VITALS (20 sets, daily range): BP systolic 97–152; BP diastolic 53–87; PULSE 85–112; TEMP 97.3–98.6
--- NOTE | 2023-07-07 04:41 | NUR ---
Patient resting in bed, denies further need at this time, NPO maintained.
[2023-07-07 07:07] LABS: BASO % 0.3 % (0.0-2.0); EOS # 0.2 K/mm3 (0.0-0.7); EOS % 2.7 % (0.0-4.0); GRAN # 4.6 K/mm3 (1.4-6.5); GRAN % 75.7 % (42.2-75.2); HEMATOCRIT 44.1 % (42.0-52.0); LYMPH # 0.7 K/mm3 (1.2-3.4); LYMPH % 10.8 % (20.0-51.0); MEAN CELL VOLUME 99 fl (80.0-100.0); MEAN CORPUSCULAR HEMOGLOBIN 31 pg (27-31); MEAN CORPUSCULAR HGB CONC 32 g/dl (33.0-37.0); MEAN PLATELET VOLUME 12.5 fl (7.4-10.4); MONO # 0.6 K/mm3 (0.1-0.6); PLATELET COUNT 131 K/mm3 (130-400); RED BLOOD COUNT 4.46 M/mm3 (4.20-5.60); REDCELL DISTRIBUTION WIDTH-CV 15.8 % (11.5-14.5)
[2023-07-07 07:29] LABS: ALBUMIN 2.8 gm/dL (3.4-4.8); CALCIUM 8.7 mg/dL (8.4-10.2); CREATININE, serum 2.94 mg/dL (0.72-1.25); PHOSPHOROUS 3.5 mg/dL (2.3-4.7); POTASSIUM 3.9 mmol/L (3.5-4.5)
--- NOTE | 2023-07-07 11:40 | NUR ---
Pt to ct per wheelchair from inpt room. Brought to ct per quality control inspector. Monitors applied. O2 on at 3l/nc.
--- NOTE | 2023-07-07 12:15 | NUR ---
Dr Heredia removed 350 mls of yellow drainage from right kidney cyst.
--- NOTE | 2023-07-07 12:20 | NUR ---
Nurse ashutosh 10 mls of blood from INT site in RA given to Dr Heredia. Dr Heredia inserted 8 mls of blood into right kidney cyst.
--- NOTE | 2023-07-07 15:12 | NUR ---
Assessment completed this morning. O2 2L/NC. Pt had renal cyst aspiration. Report received from AMIRAH Elias- no sedation was required during aspiration and there was 350 urine aspirated. Per Jada, Dr. Heredia reported there wasn't anything to biopsy and was going to contact Dr. Perera. Pt declines pain. Bandaid to right flank CDI. Family here and at bedside during the procedure. Held 1200 Lovenox since patient had procedure. Au DD pale yellow urine.
--- NOTE | 2023-07-07 19:04 | NUR ---
24 hour creatinine urine started at 1814. Au bad on ice and collection container on ice.
[2023-07-08] VITALS (12 sets, daily range): BP systolic 112–141; BP diastolic 57–71; PULSE 82–88; TEMP 97.7–98.3
--- NOTE | 2023-07-08 01:53 | NUR ---
07/07 2345 PT. CALLED TO SAY HE FELT LIKE HIS SHELBY WAS LEAKING, THE NURSE'S AIDE CHECKED AND FOUND THAT THE SHELBY HAD COMPLETELY COME OUT, AND THE BALOON WAS DEFLATED, THE PT. STATED THAT HE HAD NPT BEEN PULLING ON THE CATHETER, AND THE PT. HAS NOT BEEN CONFUSED, I LET PT. KNOW WE WOULD NEED TO PLACE A NEW CATHETER, HE STATED THAT THEY HAD HAD TO USE A COUDE TIP CATHETER THE LAST TIME, AND THAT HE HAD BEEN HAVING SOME BLEEDING EVER SINCE IT WAS PLACED, WHEN I CHECKED, THE PT. DID HAVE SOME BLOOD ON THE OLD SHELBY TUBING, ON HIS LEGS, ON THE BRIEF HE WAS WEARING, AND EVEN ON HIS GOWN, I CHECKED AND COULD NOT FIND A COUDE TIP SHELBY AVAILABLE, SO I LET THE PT. KNOW THAT I WOULD SEE WHAT I COULD DO ABOUT PLACING A NEW SHELBY, I WAS ABLE TO PLACE A REGULAR 16 FR SHELBY WITHOUT ENCOUNTERING ANY RESISTANCE, PT. DID EXPRESS SOME DISCOMFORT WHILE IT WAS BEING PLACED, URINE OUTPUT DIRECTLY AFTER PLACING SHELBY WAS CLEAR YELLOW, I DISPOSED OF THE AMOUNT IN HIS SHELBY BAG, AND RESTARTED THE TIME FOR HIS 24H URINE COLLECTION TO 234, WHICH WILL NOW END ON 07/08 2345 INSTEAD OF 181, WILL CONTINUE TO MONITOR.
[2023-07-08 07:15] LABS: BASO % 0.4 % (0.0-2.0); EOS # 0.1 K/mm3 (0.0-0.7); EOS % 1.8 % (0.0-4.0); GRAN # 5.6 K/mm3 (1.4-6.5); GRAN % 77.9 % (42.2-75.2); HEMATOCRIT 42.1 % (42.0-52.0); HEMOGLOBIN 13.4 g/dl (13.5-18.0); LYMPH # 0.8 K/mm3 (1.2-3.4); LYMPH % 10.4 % (20.0-51.0); MEAN CELL VOLUME 99 fl (80.0-100.0); MEAN CORPUSCULAR HEMOGLOBIN 32 pg (27-31); MEAN CORPUSCULAR HGB CONC 32 g/dl (33.0-37.0); MEAN PLATELET VOLUME 12.4 fl (7.4-10.4); MONO # 0.7 K/mm3 (0.1-0.6); MONO % 9.1 % (1.7-9.3); PLATELET COUNT 135 K/mm3 (130-400); RED BLOOD COUNT 4.26 M/mm3 (4.20-5.60); REDCELL DISTRIBUTION WIDTH-CV 15.8 % (11.5-14.5)
--- NOTE | 2023-07-08 23:37 | NUR ---
PT. RESTING COMFORTABLY IN BED, DENIES ANY PAIN AT THIS TIME, I ASKED HIM IF HE HAD HAD ANY MORE PROBLEMS WITH HIS CATHETER, WHICH PT. DENIED, AND I CHECKED TO MAKE SURE IT WAS STILL IN PLACE CORRECTLY, PT.'S 24H URINE COLLECTION WILL BE DONE AT 2345, AND WILL CONTINUE TO MONITOR IN THE MEANTIME.
[2023-07-09] VITALS (17 sets, daily range): BP systolic 106–138; BP diastolic 41–78; PULSE 71–103; TEMP 97.3–98.4
[2023-07-09 07:19] LABS: BASO % 0.5 % (0.0-2.0); EOS # 0.3 K/mm3 (0.0-0.7); GRAN % 69.6 % (42.2-75.2); HEMOGLOBIN 13.5 g/dl (13.5-18.0); LYMPH # 0.9 K/mm3 (1.2-3.4); LYMPH % 15.1 % (20.0-51.0); MEAN CELL VOLUME 99 fl (80.0-100.0); MEAN CORPUSCULAR HEMOGLOBIN 31 pg (27-31); MEAN CORPUSCULAR HGB CONC 31 g/dl (33.0-37.0); MEAN PLATELET VOLUME 12.8 fl (7.4-10.4); MONO # 0.6 K/mm3 (0.1-0.6); MONO % 9.5 % (1.7-9.3); PLATELET COUNT 136 K/mm3 (130-400); RED BLOOD COUNT 4.34 M/mm3 (4.20-5.60); REDCELL DISTRIBUTION WIDTH-CV 15.8 % (11.5-14.5)
[2023-07-09 07:38] LABS: ALBUMIN 2.7 gm/dL (3.4-4.8); CALCIUM 8.6 mg/dL (8.4-10.2); CREATININE, serum 3.02 mg/dL (0.72-1.25); PHOSPHOROUS 3.7 mg/dL (2.3-4.7); POTASSIUM 4.2 mmol/L (3.5-4.5)
[2023-07-09 08:02] LABS: CREATININE, serum 3.02 mg/dL (0.72-1.25)
--- NOTE | 2023-07-09 09:28 | NUR ---
INT to RFA infilltrated. AIVS placed #24g to RH. NS infusing at TKO.
--- NOTE | 2023-07-09 09:45 | NUR ---
Pt to OR via bed, escorted by Medhat Sky at approximately 0932. Family arrived shortly after and escorted to the surgery waiting room. Medhat notified that family is in waiting room.
--- NOTE | 2023-07-09 11:15 | NUR ---
Returns from OR via bed. Drowsy but easily arousable. Reports pain to lower abdomen 11/05. Declines offer from Tylenol. Reports nausea. Zofran administered IVP. VSS- see flowsheet. O2 3L/NC. Family at bedside.
--- NOTE | 2023-07-09 13:07 | NUR ---
Pt sitting up in bed, awake, visiting with family. VSS- see flowsheet. SpO2 adequate so O2 removed. Wears 3L/NC at noc baseline. IVF d/c'd. Tolerating fluids without c/o nausea. Reports pain 1/10 to lower abdomen. Warm blanket applied to lower abdomen. Tylenol adminsitered. Dressing to abdomen continues to be CDI. Patient was found to be in afib in surgery. Leanne notified. Tele placed. SCD on bilaterally. Lovenox administered. Pt and family report patient has chronic afib and has had unsuccessful attempts at cardioversion. Lunch tray has been ordered.
--- NOTE | 2023-07-09 17:57 | NUR ---
10 units insulin administered SQ to LA for BS of 407. No answer when EARNESTINE Perdomo called- this nurse left a message. Pt's diet after procedure was renal diet only- ADA was not added as secondary. This was corrected after patient rec'd lunch tray and this nurse saw a Dr. Washington and frisian ice on his tray. Pt denies pain to his abdomen at this time.
--- NOTE | 2023-07-09 18:43 | NUR ---
Rechecked blood sugar- was 453. EARNESTINE Perdomo notified. New order rec'd for Mod SSI to start at bedtime.
--- NOTE | 2023-07-09 19:07 | NUR ---
Report given to AMIRAH Phipps- she was made aware of BS issues.
[2023-07-10 00:55] VITALS: BP_SYST 120
[2023-07-10 03:20] VITALS: BP 114/60; PULSE 77; TEMP 97.6
[2023-07-10 04:47] VITALS: BP_SYST 114
--- NOTE | 2023-07-10 05:25 | NUR ---
07/09 2030 PT. DENIES ANY PAIN FROM HIS PERITONEAL DIALYSIS CATH PLACEMENT TODAY, BUT STATES THAT HE IS HAVING PAIN IN HIS LEGS, AND ASKED ABOUT HIS DOSE OF GABAPENTIN, I LET HIM KNOW THAT I HAD BROUGHT IT WITH ME, ALONG WITH HIS OTHER NIGHT MEDS, EXPLAINED TO PT. THAT I WOULD BE GIVING HIM 12 UNITS OF INSULIN PER HIS SLIDING SCALE ORDER HIS BLOOD SUGAR WAS 446, PT. STATES HE WASN'T SURE WHY IT WAS SO HIGH, BUT THAT HE HAD NOTICED IT HAD BEEN INCREASING SLIGHTLY FROM WHAT IT USED TO RUN WHEN HE WAS AT HOME, I NOTIFIED DR. العلي OF PT.'S BS, AND HE INCREASED THE PT.'S SLIDING SCALE TO THE HIGH SLIDING SCALE, FROM THE MEDIUM ONE, WILL CONTINUE TO MONITOR.
[2023-07-10 06:44] LABS: BASO % 0.1 % (0.0-2.0); GRAN # 7.8 K/mm3 (1.4-6.5); HEMATOCRIT 42.2 % (42.0-52.0); HEMOGLOBIN 13.6 g/dl (13.5-18.0); LYMPH # 0.6 K/mm3 (1.2-3.4); LYMPH % 6.5 % (20.0-51.0); MEAN CELL VOLUME 97 fl (80.0-100.0); MEAN CORPUSCULAR HEMOGLOBIN 31 pg (27-31); MEAN CORPUSCULAR HGB CONC 32 g/dl (33.0-37.0); MEAN PLATELET VOLUME 12.3 fl (7.4-10.4); MONO # 0.7 K/mm3 (0.1-0.6); PLATELET COUNT 137 K/mm3 (130-400); RED BLOOD COUNT 4.34 M/mm3 (4.20-5.60); REDCELL DISTRIBUTION WIDTH-CV 15.5 % (11.5-14.5)
[2023-07-10 06:58] LABS: ALBUMIN 2.8 gm/dL (3.4-4.8); CALCIUM 8.6 mg/dL (8.4-10.2); CREATININE, serum 3.22 mg/dL (0.72-1.25); PHOSPHOROUS 3.8 mg/dL (2.3-4.7); POTASSIUM 4.6 mmol/L (3.5-4.5)
[2023-07-10 07:19] VITALS: BP 126/61; PULSE 72; TEMP 97.4
[2023-07-10 08:45] VITALS: BP_SYST 126
--- NOTE | 2023-07-10 09:10 | NUR ---
pt sitting in bed eating breakfast. pt is asking when he will get to go home today. states he is ready to get home but family will not be able to get him until after 1030am. pt states he is feeling well this morning. peritoneal catheter placed yesterday, site appears clean and dry not redness noted. no complaint of shortness of breath or difficulty breathing.
[2023-07-10] MEDS ORDERED: GENTAMICIN30GROINT TOP (09:27)
[2023-07-10] MEDS ORDERED: BACTROBAN 22GM22 GM TP (09:28)
--- NOTE | 2023-07-10 12:24 | NUR ---
ALL DISCHARG INSTRUCTIONS REVIEWED WITH PT, ALL QUESTIONS AND CONCERNS ANSWERED AT THAT TIME. IV SITE TO R WRIST DISCONTINUED, CATHETER TIP INTACT. SHELBY CATHETER DISCONTINUED, 475ML CLEAR YELLOW URINE DRAINED FROM CATHETER BAG. 10ML NORMAL SALINE REMOVED FROM SHELBY BALLOON. PT TOLERATED WELL. PT ESCORTED OUT BY NURSE AND FAMILY, ALL PERSONAL BELONGINGS TAKEN WITH PT.
--- NOTE | 2023-07-10 13:04 | NUR ---
cattle care worker met with patient to review the Important Message from Medicare. Patient expressed he understood his rights as a patient and signed the form. cattle care worker made a copy of the form and placed the original in patient's chart. No further needs at this time. Discharge plan: Home
== END 2023-07-10 12:20 | disposition home or self-care (01) | DRG 982 ==
LOC: MEDICAL 08:56
PROVIDERS: Registered Nurse; ADMIT Internal Medicine Nephrology
PROC: 0WHG03Z Insertion of Infusion Device into Peritoneal Cavity, Open Approach (ICD-10-PCS; principal; 2023-07-03)
PROC: 0DNU4ZZ Release Omentum, Percutaneous Endoscopic Approach (ICD-10-PCS; 2023-07-03)
PROC: 0W993ZZ Drainage of Right Pleural Cavity, Percutaneous Approach (ICD-10-PCS; 2023-07-03)
DX: E87.70 Fluid overload, unspecified (principal); I13.2 Hypertensive heart and chronic kidney disease with heart failure and with stage 5 chronic kidney disease, or end stage renal disease; N18.4 Chronic kidney disease, stage 4 (severe); N18.5 Chronic kidney disease, stage 5; I50.20 Unspecified systolic (congestive) heart failure; Z99.2 Dependence on renal dialysis; E11.22 Type 2 diabetes mellitus with diabetic chronic kidney disease; E11.40 Type 2 diabetes mellitus with diabetic neuropathy, unspecified; Z79.4 Long term (current) use of insulin; Z79.84 Long term (current) use of oral hypoglycemic drugs; I48.0 Paroxysmal atrial fibrillation; E87.6 Hypokalemia; Z86.73 Personal history of transient ischemic attack (TIA), and cerebral infarction without residual deficits; G47.34 Idiopathic sleep related nonobstructive alveolar hypoventilation; N40.0 Benign prostatic hyperplasia without lower urinary tract symptoms
CPT/HCPCS: A9270; C1750; J0690; J1100; J1650; J1815; J2371; J2405; J3010; J7030

== ENCOUNTER 2023-07-31 07:00 | Outpatient (CLI) | payer MEDICARE, BC ==
[~2023-07-31] VITALS: Ht 170.2 cm; Wt 86.3 kg
[~2023-07-31 07:00] MED LIST changes: +BACTROBAN 22GM22 GM TP; +GENTAMICIN30GROINT TOP
[2023-07-31 07:55] VITALS: BP 168/80; PULSE 84; TEMP 97.6
[2023-07-31 08:50] VITALS: BP 160/73; PULSE 76; TEMP 97
[2023-07-31 09:28] VITALS: BP 155/76; PULSE 80
--- NOTE | 2023-07-31 09:55 | NUR ---
0850 RETURNS TO ROOM 1 PER CART. AWAKE, ALERT. RESP UNLABORED. DENIES CHEST PAIN OR DYSPNEA. HOB ELEVATED 45 DEGREES. BANDAID RIGHT POSTERIOR CHEST CLEAN DRY AND INTACT. VITAL SIGNS OBTAINED. CALL LIGHT AT SIDE. FAMILY IN ROOM 0905 HOB ELEVATED 80 DEGREES. TOLERATES PO JUICE WITHOUT NAUSEA 0920 DISCHARGE INSTRUCITONS REVIEWED. PATIENT AND FAMILY VERBALIZE UNDERSTANDING, COPY PROVIDED IN DISCHARGE FOLDER 0930 FLU VACCINE GIVEN RIGHT DELTOID 0950 SITS ON EDGE OF BED. DRESSES WITH MINIMAL ASSIST FROM FAMILY
== END 2023-07-31 09:58 | disposition home or self-care (01) ==
LOC: SDCO 07:00
DX: J90 Pleural effusion, not elsewhere classified (principal); Z23 Encounter for immunization; N18.9 Chronic kidney disease, unspecified; E11.22 Type 2 diabetes mellitus with diabetic chronic kidney disease; I12.9 Hypertensive chronic kidney disease with stage 1 through stage 4 chronic kidney disease, or unspecified chronic kidney disease; Z79.84 Long term (current) use of oral hypoglycemic drugs; I25.10 Atherosclerotic heart disease of native coronary artery without angina pectoris; I27.20 Pulmonary hypertension, unspecified; Z87.891 Personal history of nicotine dependence; Z79.82 Long term (current) use of aspirin; Z79.899 Other long term (current) drug therapy

== ENCOUNTER 2023-11-21 06:38 | Outpatient (CLI) | payer MEDICARE, BC ==
[~2023-11-21 06:38] MED LIST changes: +B-12 250 MCG PO; +B-121000 MCG PO; +VITAMIN B-6100 MG PO
--- NOTE | 2023-11-21 07:32 | NUR ---
PATIENT ADMITTED TO ROOM 7 PER WHEELCHAIR ACCOMPAINED BY DAUGHTER'S ASYA AND JULIO. ASSISTED ONTO CART WITH ONE PERSON ASSIST. SATS ON ROOM AIR 88-91%. PLACED ON OXYGEN AT 3L PER NASAL CANNULA. DAUGHTER'S STATE THAT HE USES OXYGEN AT HOME. DYSPNEIC WITH ANY EXERTION. PATIENT STATES THAT HE IS HERE TO HAVE RIGHT LUNG DRAINED. LUNGS SOUNDS VERY DIMINISHED ON THE RIGHT SIDE. DAUGHTER'S PROVIDED COPY OF ADVANCE DIRECTIVES AND SIGN CONSENT. RESTING ON CART AND SIDERAILS UP X2 WITH CALL LIGHT IN REACH.
[2023-11-21] MEDS ORDERED: ZAROXOLYN5 MG PO (08:18)
[2023-11-21] MEDS ORDERED: NATURE'S BLEND100 M2 PO (08:19)
[2023-11-21] MEDS ORDERED: NOVOLOG 100U100 U/M1 SQ (08:22)
[2023-11-21 09:56] LABS: PLEURAL FLUID RBC 27000 /mm3 (0-0); PLEURAL FLUID WBC 1594 /mm3
[2023-11-21 09:57] LABS: PLEURAL FLUID APPEARANCE CLOUDY; PLEURAL FLUID COLOR RED
[2023-11-21 10:14] VITALS: BP 133/69; PULSE 87; TEMP 98.2
--- NOTE | 2023-11-21 14:03 | NUR ---
PT BROUGHT FROM ENDO-1 BACK TO [facility] FOR D/C BY SCIENTIFIC TECHNICAL WRITER (UNDERSIGNED) - SEE PROCEDURE NOTE FOR DETAILS. PT CLEARED FOR DC BY DR OTT AFTER CXR REVIEWED, STABLE, A&O, NAD, VSS ON 3L (BASELINE), DENIES COMPLAINT. BANDAID CDI. ALL QUESTIONS/CONCERNS ADDRESSED PRIOR TO DC.
== END 2023-11-21 09:20 | disposition home or self-care (01) ==
LOC: SDCO 06:38
PROVIDERS: Internal Medicine Pulmonary Disease
DX: J90 Pleural effusion, not elsewhere classified (principal)
CPT/HCPCS: 19804